=== PATIENT | female | born 1990 ===

== ENCOUNTER → 2023-04-08 09:40 | Outpatient (BNVA) | payer OTHER, SELFPAY | PROVIDERS: PCP Student in an Organized Health Care Education/Training Program; Visit Provider Nurse Practitioner Family | DX: G43.909 Migraine, unspecified, not intractable, without status migrainosus (principal); G80.8 Other cerebral palsy; Z33.1 Pregnant state, incidental | CPT/HCPCS: 99202 ==

== ENCOUNTER 2023-07-26 11:26 | Outpatient (AMB) | payer OTHER, SELFPAY ==
--- NOTE | 2023-07-26 11:42 | A.OFFVIS_ITS ---
Intake Vital Signs 07/26/23 11:43 Height 5 ft 1 in Weight 221 lb 4 oz BMI 41.8 BP 128/76 Blood Pressure Location Lt brachial Position Sitting Pulse 88 Pulse Source Pulse Oximeter Pulse Oximetry (%) 100 Oxygen Delivery Method Room Air Intake Visit Reasons: 3m follow up Seizure disorder/headache - LVM Intake Note: Pt presents today for fup seizure , last seizure 7 months ago Allergies ciprofloxacin Allergy (Unknown, Verified 07/26/23 11:46) Rash HPI HPI Comments History of Present Illness Details 33-yr-old female presents for f/u visit. Pt denies any significant interval medical changes. Pt is now 5 months . Pt denies any complications. She states she will be assessed at 8 months to determine if she needs to ahve a again. She states she was advised that she did not need to see a high-risk OB, but if any complications arise, she will be referred to [facility]. Denies any interval seizures. May have an occasional mild headache- responds to prn Tylenol. [facility] Medical History Depression GERD (gastroesophageal reflux disease) HTN (hypertension) Seizures Surgical History History of section History of surgery on lower extremity Hx of hand surgery Family History Mother Diabetes Hypertension Hypercholesteremia Glaucoma Depression Anxiety Migraines Father Diabetes Hypertension Hypercholesteremia Anxiety Depression Maternal Grandmother Myocardial infarction Brother Anxiety Depression Daughter Anxiety Depression Social History Alcohol intake: never Patient Tobacco Use Status: Current everyday Tobacco user Review of Systems Const All systems reviewed & are unremarkable except as noted in HPI and below Physical Exam Vital Signs: Last Vital Signs Pulse 88 07/26/23 11:43 BP 128/76 07/26/23 11:43 Pulse Ox 100 07/26/23 11:43 Oxygen Delivery Method Room Air 07/26/23 11:43 BMI result Body Mass Index 41.8 Const General: cooperative and no acute distress Orientation/consciousness: patient oriented x3 HEENT Head: Yes normocephalic Resp Effort & Inspection: normal respiratory effort and able to speak in complete sentences Neuro Other: Left hemiparesis General: patient oriented x3, gait normal and CN's II-XI intact bilaterally Cognition (Neuro): normal cognition Psych Appearance: grossly normal Mental Status: mental status grossly normal Speech and movement: Clear speech present Affect: normal affect Attitude: cooperative Thought process: Normal thought process present Assessment & Plan Assessment & Plan (1) : Code(s): Z34.90 - Encounter for supervision of normal , unspecified, unspecified trimester (2) Migraine: Code(s): G43.909 - Migraine, unspecified, not intractable, without status migrainosus (3) Seizures: Code(s): R56.9 - Unspecified convulsions (4) Left-sided hemiplegic cerebral palsy: Code(s): G80.8 - Other cerebral palsy Plan For seizure: Pt has h/o generalized seizure stemming from infancy. More recent seizure activity appears to have a non-epileptioc etiology- likely significant life stressor and depression. She continues to hold lamotrigine. She may continue to use Clonazepam 0.5mg prn seizure activity. ? For overall headache management: Track headaches. ? For acute headache treatment: May use Tylenol prn. Previous acute migraine medication trials: Ibuprofen Acute migraine medication contraindications: NSAIDs d/t Future considerations: Sumatriptan. ? For headache prevention medication: continue Magnesium 400mg qhs Previous migraine prevention medication trials: None Migraine prevention medication contraindications: Currently . ?? Pt to follow-up in 3 months or sooner prn. Coding Level of Care Code Est Pt Level 3 (37489) Diagnoses Z34.90 Migraine G43.909 Seizures R56.9 Left-sided hemiplegic cerebral palsy G80.8
[2023-07-26 11:43] VITALS: BP 128/76; PULSE 88; O2SAT 100; BMI 41.8
== END 2023-07-26 12:20 | disposition home or self-care (01) ==
PROVIDERS: Visit Provider Nurse Practitioner Family
DX: G43.909 Migraine, unspecified, not intractable, without status migrainosus (principal); R56.9 Unspecified convulsions; G80.8 Other cerebral palsy; Z33.1 Pregnant state, incidental
CPT/HCPCS: 99213

== ENCOUNTER → 2023-07-26 11:26 | Outpatient (BNVA) | payer OTHER, SELFPAY | PROVIDERS: Visit Provider Nurse Practitioner Family | DX: O99.352 Diseases of the nervous system complicating pregnancy, second trimester (principal); G43.909 Migraine, unspecified, not intractable, without status migrainosus; G80.8 Other cerebral palsy; Z79.899 Other long term (current) drug therapy; Z3A.00 Weeks of gestation of pregnancy not specified | CPT/HCPCS: 99212 ==

== ENCOUNTER 2023-11-09 11:00 | Outpatient (AMB) | payer OTHER, SELFPAY ==
[2023-11-09 11:07] VITALS: BP 90/70; PULSE 74; O2SAT 98; BMI 41.8
--- NOTE | 2023-11-09 11:07 | A.OFFVIS_ITS ---
Intake Vital Signs 11/09/23 11:07 Height 5 ft 1 in Weight 221 lb BMI 41.8 BP 90/70 Blood Pressure Location Rt brachial Position Sitting Pulse 74 Pulse Source Pulse Oximeter Pulse Oximetry (%) 98 Oxygen Delivery Method Room Air Intake Visit Reasons: 3m follow up Seizure disorder/headache-Confirmed Intake Note: Patient presents for 3 month follow up seizure disorder. I was admitted in the hospital with blood clot in leg,I had a c section followed by stent in leg. Allergies ciprofloxacin Allergy (Unknown, Verified 11/09/23 11:12) Rash Medication List - Last Reconciled 11/09/23 by ROE Johnson aspirin 81 mg PO DAILY cariprazine (Vraylar) 3 mg PO DAILY clonazepam mg PO docusate sodium 100 mg PO BID enoxaparin 90 mg subcut DAILY escitalopram oxalate 10 mg PO DAILY famotidine 20 mg PO BID ferrous sulfate 325 mg PO DAILY lamotrigine 100 mg PO BID zolpidem 5 mg PO BEDTIME PRN HPI HPI Comments History of Present Illness Details 33-yr-old female presents for f/u visit, accompanied by her father. Om 10/12/23, pt had [facility] eval and transfer to [facility] for leg swelling, chest pain, and SOB. Work-up revealed: persistent left lower extremity DVT, pulmonary embolus, A-fib with RVR, mild right hydroureteronephrosis likely secondary to enlarged uterus. Seizures were managed w/ Keppra and then pt was switched back to low dose Lamotrigine w/ instructions to slowly return to 100mg bid. 10/22/2023, Pt underwent section and tubal ligation 10/31/2023 patient underwent embolectomy /thrombectomy of left lower extremity with left iliac venous stenting Upon d/c, pt d/c'd home w/ home care services, f/u vascular appt and LLE US on 11/15/23, continue lovenox and transition to Warfarin if (which she is doing). Since returning home, she has not had any interval seizures. She is slowly regaining her strength, although still needs walker or assist of 1 to walk. Headaches are stable [facility] Medical History (Updated 11/21/23 @ 21:29 by ROE Johnson) HTN (hypertension) Depression GERD (gastroesophageal reflux disease) Seizures Surgical History (Updated 11/21/23 @ 21:29 by ROE Johnson) History of embolectomy Hx of hand surgery History of surgery on lower extremity History of section Family History Mother Diabetes Hypertension Hypercholesteremia Glaucoma Depression Anxiety Migraines Father Diabetes Hypertension Hypercholesteremia Anxiety Depression Maternal Grandmother Myocardial infarction Brother Anxiety Depression Daughter Anxiety Depression Social History Alcohol intake: never Patient Tobacco Use Status: Current everyday Tobacco user Review of Systems Const All systems reviewed & are unremarkable except as noted in HPI and below Physical Exam Vital Signs: Last Vital Signs Pulse 74 11/09/23 11:07 BP 90/70 11/09/23 11:07 Pulse Ox 98 11/09/23 11:07 Oxygen Delivery Method Room Air 11/09/23 11:07 BMI result Body Mass Index 41.8 Const General: cooperative and no acute distress Orientation/consciousness: patient oriented x3 Resp Effort & Inspection: normal respiratory effort and able to speak in complete sentences Neuro Other: Left hemiparesis LLE w/ jenniffer wrap General: patient oriented x3 and CN's II-XI intact bilaterally Cognition (Neuro): normal cognition Psych Appearance: grossly normal Mental Status: mental status grossly normal Speech and movement: Normal speech and movement present Affect: normal affect Attitude: cooperative Assessment & Plan Assessment & Plan (1) Seizures: Code(s): R56.9 - Unspecified convulsions (2) Left-sided hemiplegic cerebral palsy: Code(s): G80.8 - Other cerebral palsy (3) Migraine: Code(s): G43.909 - Migraine, unspecified, not intractable, without status migrainosus (4) Pulmonary embolism: Comment: Oct 2023- in 3rd trimester of Code(s): I26.99 - Other pulmonary embolism without acute cor pulmonale (5) Deep vein thrombosis (DVT) of left lower extremity: Code(s): I82.402 - Acute embolism and thrombosis of unspecified deep veins of left lower extremity Plan Reviewed [facility] notes and imaging reports. For seizure: Continue to increase Lamotrigine up to 100mg bid She may continue to use Clonazepam 0.5mg prn seizure activity. Check CBC, CMP, lamictal level ? For overall headache management: Track headaches. ? For acute headache treatment: May use Tylenol prn. Previous acute migraine medication trials: Ibuprofen Acute migraine medication contraindications: NSAIDs d/t currently on anti- coagulants. Future considerations: Sumatriptan. ? For headache prevention medication: Continue Magnesium 400mg qhs Previous migraine prevention medication trials: None Migraine prevention medication contraindications: Currently nursing. ?? Pt to follow-up in 3 months or sooner prn. Orders: Orders Complete Blood Count Auto Diff 11/09/23 R56.9 - Unspecified convulsions Comprehensive Met. Panel 11/09/23 R56.9 - Unspecified convulsions Lamotrigine Lamictal 11/09/23 R56.9 - Unspecified convulsions Medications: New lamotrigine 100 mg (1/2 x 200 mg) PO BID 30 tabs 1RF 30 days Coding Level of Care Code Est Pt Level 4 (88951) Diagnoses Seizures R56.9 Left-sided hemiplegic cerebral palsy G80.8 Migraine G43.909 Pulmonary embolism I26.99 Deep vein thrombosis (DVT) of left lower extremity I82.402
== END 2023-11-09 11:58 | disposition home or self-care (01) ==
PROVIDERS: PCP Student in an Organized Health Care Education/Training Program; Visit Provider Nurse Practitioner Family
DX: R56.9 Unspecified convulsions (principal); G80.8 Other cerebral palsy; G43.909 Migraine, unspecified, not intractable, without status migrainosus; I26.99 Other pulmonary embolism without acute cor pulmonale; I82.402 Acute embolism and thrombosis of unspecified deep veins of left lower extremity
CPT/HCPCS: 99214

== ENCOUNTER → 2023-11-09 11:00 | Outpatient (BNVA) | payer OTHER, SELFPAY | PROVIDERS: PCP Student in an Organized Health Care Education/Training Program; Visit Provider Nurse Practitioner Family | DX: G43.909 Migraine, unspecified, not intractable, without status migrainosus (principal); R56.9 Unspecified convulsions; G80.8 Other cerebral palsy; I26.99 Other pulmonary embolism without acute cor pulmonale; I82.402 Acute embolism and thrombosis of unspecified deep veins of left lower extremity | CPT/HCPCS: 99212 ==

== ENCOUNTER → 2023-12-16 07:49 | Outpatient (BNVA) | payer OTHER, SELFPAY | PROVIDERS: PCP Student in an Organized Health Care Education/Training Program; Visit Provider Nurse Practitioner Family ==

== ENCOUNTER 2024-05-01 08:22 | Outpatient (AMB) | payer OTHER, SELFPAY ==
--- NOTE | 2024-05-01 08:51 | A.OFFVIS_ITS ---
Vital Signs 05/01/24 08:57 Height 5 ft 1 in Weight 235 lb 4 oz BMI 44.4 BP 112/70 Blood Pressure Location Lt brachial Position Sitting Pulse 85 Pulse Source Pulse Oximeter Pulse Oximetry (%) 98 Oxygen Delivery Method Room Air Intake Visit Reasons: Follow up-Conf Intake Note: Patient presents for f/u. Still getting headaches. 3x a week. Allergies ciprofloxacin Allergy (Unknown, Verified 05/01/24 08:56) Rash Medication List - Last Reconciled 05/01/24 by ROE Johnson apixaban (Eliquis) 5 mg PO BID ascorbic acid (vitamin C) 500 mg PO DAILY 30 days aspirin 81 mg PO DAILY clonazepam 0.5 mg PO BEDTIME PRN 30 days docusate sodium 100 mg PO BID 30 days escitalopram oxalate 10 mg PO DAILY 30 days ferrous sulfate 325 mg PO DAILY 30 days flecainide 100 mg PO Q12H lamotrigine 200 mg PO BID 30 days levetiracetam 1,000 mg (2 x 500 mg) PO BID 30 days magnesium oxide 400 mg PO BEDTIME 30 days sumatriptan succinate 50 - 100 mg orally at onset of headache, may repeat in 2 hrs PRN; max 2 tabs per day or 4 tabs/week (may take with Tylenol) 30 days HPI Comments Details: 34-yr-old female presents for f/u visit. She has stopped nursing completely. Pt reports she has had f/u w/ cardiology and vascular- she had a recent 30 day holter monitor, and is scheduled for loop monitor implant on 05/04/24 at [facility]. She continues on Eliquis. No interval new thrombosis. She does note that her legs are still more swollen- states cannot wear her usual shoes or her LLE brace. Sometimes uses her cane or walker. Denies interval seizure attacks. She has been noticing more headaches. Now having 2-3 migraine days per week. Sumatriptan helps some. Baseline headache characteristics: Prodrome symptoms: None Aura: Blurry vision- starts hours before the headache. She has blurry vision all times. Had eye exam- worrisome for diabetic changes, but f/u eye exam w/ retinal specialist was normal- note pt does not have diabetes. Headache: 6-7/10, throbbing left-sided frontal headache a/w photophobia, phonophobia, nausea, mild dizziness, brain fog, tiredness. Also anxiety and seizure- LOC, whole body shaking, tongue biting, jaw clenching- lasts 2-3 minutes, postictal fatigue, confusion, difficulty talking, watery eyes Postdrome: Sometimes a residual headache. [facility] Medical History (Updated 05/01/24 @ 09:37 by ROE Johnson) HTN (hypertension) Depression GERD (gastroesophageal reflux disease) Seizures Surgical History (Updated 05/01/24 @ 09:33 by ROE Johnson) History of embolectomy Hx of hand surgery History of surgery on lower extremity History of section Family History Mother Diabetes Hypertension Hypercholesteremia Glaucoma Depression Anxiety Migraines Father Diabetes Hypertension Hypercholesteremia Anxiety Depression Maternal Grandmother Myocardial infarction Brother Anxiety Depression Daughter Anxiety Depression Social History Alcohol intake: never Patient Tobacco Use Status: Current everyday Tobacco user Physical Exam Vital Signs: Last Vital Signs Pulse 85 05/01/24 08:57 BP 112/70 05/01/24 08:57 Pulse Ox 98 05/01/24 08:57 Oxygen Delivery Method Room Air 05/01/24 08:57 BMI result Body Mass Index 44.4 Const General: cooperative and no acute distress Orientation/consciousness: patient oriented x3 Resp Effort & Inspection: normal respiratory effort and able to speak in complete sentences Neuro Other: Left ankle foot weakness. Slight left high step- overall steady gait- w/o brace or walker/cane. LLE diffuse swelling. General: patient oriented x3 Cranial nerves: Yes CN's II-XII intact bilaterally Cognition (Neuro): normal cognition Psych Appearance: grossly normal Mental Status: mental status grossly normal Speech and movement: Clear speech present Affect: normal affect Attitude: cooperative Assessment & Plan Assessment & Plan (1) Migraine: Code(s): G43.909 - Migraine, unspecified, not intractable, without status migrainosus Category: Medical (2) Left-sided hemiplegic cerebral palsy: Code(s): G80.8 - Other cerebral palsy Category: Medical (3) Seizures: Code(s): R56.9 - Unspecified convulsions Category: Medical (4) Pain and swelling of left lower extremity: Code(s): M79.605 - Pain in left leg; M79.89 - Other specified soft tissue disorders Category: Medical Plan F/u w/ vascular and cardiology as scheduled. Pt is scheduled for loop monitor implant next week. F/u w/ Preston Franco C[employer] CATHETER[employer] TECHNICIAN- psychiatry, and therapist. For LLE pain and swelling: Will refer pt to PT- previously seen at [facility] Lynsey Matthews- pt to clear this by vascular before starting. For seizure: Continue Lamotrigine 200mg bid Continue Keppra 1000 mg b.i.d. ? For acute headache treatment: May use Tylenol prn. Continue Sumatriptan 50-100mg prn, may take w/ Tylenol- take it at the 1st sign. Previous acute migraine medication trials: Ibuprofen Acute migraine medication contraindications: NSAIDs d/t currently anticoagulated. ? For headache prevention medication: Magnesium 400mg qhs Trial Topiramate 25-50mg qhs. Previous migraine prevention medication trials: None Migraine prevention medication contraindications: Beta-blockers- d/t low BP. ?? Pt to follow-up in 3 months or sooner prn. Orders: Orders PT Evaluation and Treatment Today G80.8 - Other cerebral palsy, I82.402 - Acute embolism and thrombosis of unspecified deep veins of left lower extremity, M79.605 - Pain in left leg, M79.89 - Other specified soft tissue disorders Medications: New topiramate 25 - 50 mg (1 - 2 x 25 mg) PO BEDTIME 30 days 60 tabs 3RF levonorgestrel (Mirena) intrauterine Coding Level of Care Code Est Pt Level 4 (53824) Diagnoses Migraine G43.909 Left-sided hemiplegic cerebral palsy G80.8 Seizures R56.9 Pain and swelling of left lower extremity M79.605; M79.89
[2024-05-01 08:57] VITALS: BP 112/70; PULSE 85; O2SAT 98; BMI 44.4
== END 2024-05-01 09:46 | disposition home or self-care (01) ==
PROVIDERS: PCP Student in an Organized Health Care Education/Training Program; Visit Provider Nurse Practitioner Family
DX: G43.909 Migraine, unspecified, not intractable, without status migrainosus (principal); G80.8 Other cerebral palsy; R56.9 Unspecified convulsions; M79.605 Pain in left leg; M79.89 Other specified soft tissue disorders
CPT/HCPCS: 99214

== ENCOUNTER → 2024-05-01 08:22 | Outpatient (BNVA) | payer OTHER, SELFPAY | PROVIDERS: PCP Student in an Organized Health Care Education/Training Program; Visit Provider Nurse Practitioner Family | DX: G43.909 Migraine, unspecified, not intractable, without status migrainosus (principal); G80.8 Other cerebral palsy; R56.9 Unspecified convulsions; M79.605 Pain in left leg; M79.89 Other specified soft tissue disorders | CPT/HCPCS: 99212 ==

== ENCOUNTER 2025-04-24 09:50 | Outpatient (AMB) | payer OTHER, SELFPAY ==
[2025-04-24 10:07] VITALS: BP 100/82; PULSE 99; O2SAT 79; BMI 38.2
--- NOTE | 2025-04-24 10:07 | MHC.OFFVIS ---
Vital Signs 04/24/25 10:07 Height 5 ft 1 in Weight 202 lb BMI 38.2 BP 100/82 Blood Pressure Location Rt brachial Position Sitting Pulse 99 Pulse Source Pulse Oximeter Pulse Oximetry (%) 79 L Oxygen Delivery Method Room Air Intake Visit Reasons: Follow up Rn Intensive Care Unit Required: No Accompanied by: Self / Same As Patient Allergies ciprofloxacin Allergy (Unknown, Verified 04/24/25 10:10) Rash Medication List - Last Reconciled 04/24/25 by ROE Johnson apixaban (Eliquis) 5 mg PO BID ascorbic acid (vitamin C) 500 mg PO DAILY 30 days aspirin 81 mg PO DAILY clonazepam 0.5 mg PO BEDTIME PRN 30 days docusate sodium 100 mg PO BID 30 days escitalopram oxalate 10 mg PO DAILY 30 days ferrous sulfate 325 mg PO DAILY 30 days flecainide 100 mg PO Q12H lamotrigine 200 mg PO BID 30 days levetiracetam 1,000 mg (2 x 500 mg) PO BID 30 days levonorgestrel (Mirena) intrauterine magnesium oxide 400 mg PO BEDTIME 30 days sumatriptan succinate 50 - 100 mg orally at onset of headache, may repeat in 2 hrs PRN; max 2 tabs per day or 4 tabs/week (may take with Tylenol) 30 days tirzepatide 12.5 mg subcut QWEEK topiramate 25 - 50 mg (1 - 2 x 25 mg) PO BEDTIME 30 days HPI Comments Details: 35-yr-old female presents for f/u visit of migraine. Pt reports she continues to see cardiology and vascular- She reports she had a recent [facility] admission s/p a fall, and there was concern for LLE DVT, however f/u LLE venous US showed stable non-occlussive thrombosis. During the hospitalization, she was started on an Eliquis pack- which she has completed, and vascular advised her to maintain her daily ASA 81mg. She is prone to leg cramps while walking. She is prone to restlessness when sitting or in bed. Sometimes when she sleeps, her legs jump. She notes she has been tripping more- not sure why. She is compliant w/ her LLE AFO. Denies interval seizure attacks. She reports her migraine attacks come and go- has them more when she is stressed or feeling down. Has milder headaches here and there. Has stronger headaches less often. Taking Motrin or Tylenol, rests in a dark/quiet space, and takes a nap helps. Using Sumatriptan helps with the stronger headaches. Baseline headache characteristics: Prodrome symptoms: None Aura: Blurry vision- starts hours before the headache. She has blurry vision all times. Had eye exam- worrisome for diabetic changes, but f/u eye exam w/ retinal specialist was normal- note pt does not have diabetes. Headache: 6-7/10, throbbing left-sided frontal headache a/w photophobia, phonophobia, nausea, mild dizziness, brain fog, tiredness. Also anxiety and seizure- LOC, whole body shaking, tongue biting, jaw clenching- lasts 2-3 minutes, postictal fatigue, confusion, difficulty talking, watery eyes Postdrome: Sometimes a residual headache. [facility] Medical History (Updated 04/24/25 @ 19:14 by ROE Johnson) HTN (hypertension) Depression GERD (gastroesophageal reflux disease) Seizures Surgical History History of embolectomy Hx of hand surgery History of surgery on lower extremity History of section Family History Mother Diabetes Hypertension Hypercholesteremia Glaucoma Depression Anxiety Migraines Father Diabetes Hypertension Hypercholesteremia Anxiety Depression Maternal Grandmother Myocardial infarction Brother Anxiety Depression Daughter Anxiety Depression Social History Alcohol intake: never Patient Tobacco Use Status: Current everyday Tobacco user Physical Exam Vital Signs: Last Vital Signs Pulse 99 04/24/25 10:07 BP 100/82 04/24/25 10:07 Pulse Ox 79 L 04/24/25 10:07 Oxygen Delivery Method Room Air 04/24/25 10:07 BMI result Body Mass Index 38.2 Const General: cooperative and no acute distress Orientation/consciousness: patient oriented x3 Resp Effort & Inspection: normal respiratory effort and able to speak in complete sentences Neuro Other: Left ankle foot weakness. Slight left high step w/ left AFO- overall steady gait- w/o walker/cane. General: patient oriented x3 Cranial nerves: Yes CN's II-XII intact bilaterally Cognition (Neuro): normal cognition Psych Appearance: grossly normal Mental Status: mental status grossly normal Speech and movement: Clear speech present Affect: normal affect Attitude: cooperative Assessment & Plan Assessment & Plan (1) Left-sided hemiplegic cerebral palsy: Code(s): G80.8 - Other cerebral palsy Category: Medical (2) Frequent falls: Code(s): R29.6 - Repeated falls Category: Medical (3) Snoring: Code(s): R06.83 - Snoring Category: Medical (4) Excessive daytime sleepiness: Code(s): G47.19 - Other hypersomnia Category: Medical (5) Leg cramps: Code(s): R25.2 - Cramp and spasm Category: Medical (6) Migraine: Code(s): G43.909 - Migraine, unspecified, not intractable, without status migrainosus Category: Medical Qualifiers: Migraine type: migraine (< 15 days per month) without aura Status migrainosus presence: without status migrainosus Intractability: not intractable Qualified Code(s): G43.009 - Migraine without aura, not intractable, without status migrainosus (7) Seizures: Code(s): R56.9 - Unspecified convulsions Category: Medical Plan F/u w/ vascular and cardiology as scheduled. F/u w/ [facility] [employer]- psychiatry, and therapist. F/u w/ therapist at [facility]. For recent falls in setting of left CP: Will refer pt to PT- previously seen at [facility] Lynsey Matthews. For sleep difficulties and RLS s/s: Check labs for common etiologies Patient advised to undergo in-lab sleep study to assess for sleep apnea and periodic limb movement of sleep- in-lab sleep study requested due to history of cerebral palsy For seizure: Continue Lamotrigine 200mg bid Continue Keppra 1000 mg b.i.d. ? For acute headache treatment: May use Tylenol prn. Continue Sumatriptan 50-100mg prn, may take w/ Tylenol- take it at the 1st sign. Previous acute migraine medication trials: Ibuprofen Acute migraine medication contraindications: NSAIDs d/t currently anticoagulated. ? For headache prevention medication: Continue Magnesium 400mg qhs Hold Topiramate 25-50mg qhs- pt did not start- would like to see results of above before considering updating migraine prevention tx. Previous migraine prevention medication trials: None Migraine prevention medication contraindications: Beta-blockers- d/t low BP. ?? Pt to follow-up in 6 months or sooner prn. Orders: Orders Complete Blood Count Auto Diff Today D64.9 - Anemia, unspecified, F32.A - Depression, unspecified, G47.19 - Other hypersomnia, R25.2 - Cramp and spasm, R56.9 - Unspecified convulsions Comprehensive Met. Panel Today D64.9 - Anemia, unspecified, F32.A - Depression, unspecified, G47.19 - Other hypersomnia, R25.2 - Cramp and spasm, R56.9 - Unspecified convulsions Ferritin Today D64.9 - Anemia, unspecified, F32.A - Depression, unspecified, G47.19 - Other hypersomnia, R25.2 - Cramp and spasm, R56.9 - Unspecified convulsions IRON PROFILE Today D64.9 - Anemia, unspecified, F32.A - Depression, unspecified, G47.19 - Other hypersomnia, R25.2 - Cramp and spasm, R56.9 - Unspecified convulsions Methylmalonic Acid Today D64.9 - Anemia, unspecified, F32.A - Depression, unspecified, G47.19 - Other hypersomnia, R25.2 - Cramp and spasm, R56.9 - Unspecified convulsions Erythrocyte Sedimentation Rate Today D64.9 - Anemia, unspecified, F32.A - Depression, unspecified, G47.19 - Other hypersomnia, R25.2 - Cramp and spasm, R56.9 - Unspecified convulsions PT Evaluation and Treatment Today G80.8 - Other cerebral palsy, R29.6 - Repeated falls RT PSG in-lab sleep study Today G47.19 - Other hypersomnia, G80.8 - Other cerebral palsy, R06.83 - Snoring, R25.2 - Cramp and spasm Lipid Panel with Reflex Today D64.9 - Anemia, unspecified, F32.A - Depression, unspecified, G47.19 - Other hypersomnia, R25.2 - Cramp and spasm, R56.9 - Unspecified convulsions TSH reflex Free T4 Today D64.9 - Anemia, unspecified, F32.A - Depression, unspecified, G47.19 - Other hypersomnia, R25.2 - Cramp and spasm, R56.9 - Unspecified convulsions Vitamin D 25-OH (D2 and D3) Today D64.9 - Anemia, unspecified, F32.A - Depression, unspecified, G47.19 - Other hypersomnia, R25.2 - Cramp and spasm, R56.9 - Unspecified convulsions Vitamin B12 and Folate Today D64.9 - Anemia, unspecified, F32.A - Depression, unspecified, G47.19 - Other hypersomnia, R25.2 - Cramp and spasm, R56.9 - Unspecified convulsions Vitamin B6 Today D64.9 - Anemia, unspecified, F32.A - Depression, unspecified, G47.19 - Other hypersomnia, R25.2 - Cramp and spasm, R56.9 - Unspecified convulsions C Reactive Protein Today D64.9 - Anemia, unspecified, F32.A - Depression, unspecified, G47.19 - Other hypersomnia, R25.2 - Cramp and spasm, R56.9 - Unspecified convulsions Hemoglobin A1c Today D64.9 - Anemia, unspecified, F32.A - Depression, unspecified, G47.19 - Other hypersomnia, R25.2 - Cramp and spasm, R56.9 - Unspecified convulsions Medications: Changed From magnesium oxide may hold for loose stools 400 mg PO BEDTIME 30 days 30 tabs 6RF To magnesium oxide may hold for loose stools 400 mg PO BEDTIME 90 days 90 tabs 3RF From lamotrigine 200 mg PO BID 30 days 60 tabs 6RF To lamotrigine 200 mg PO BID 90 days 180 tabs 3RF From levetiracetam 1,000 mg (2 x 500 mg) PO BID 30 days 120 tabs 3RF To levetiracetam 1,000 mg (2 x 500 mg) PO BID 90 days 360 tabs 3RF Refilled sumatriptan succinate (0.5 - 1 x 100 mg) 50 - 100 mg orally at onset of headache, may repeat in 2 hrs PRN; max 2 tabs per day or 4 tabs/week (may take with Tylenol) 30 days 12 tabs 6RF migraine headache Discontinued topiramate Discontinued Reason: Doctor's Order 25 - 50 mg (1 - 2 x 25 mg) PO BEDTIME 30 days 60 tabs 3RF Coding Level of Care Code Est Pt Level 4 (96342) Diagnoses Left-sided hemiplegic cerebral palsy G80.8 Frequent falls R29.6 Snoring R06.83 Excessive daytime sleepiness G47.19 Leg cramps R25.2 Migraine without aura and without status migrainosus, not intractable G43.009 Migraine type: migraine (< 15 days per month) without aura Status migrainosus presence: without status migrainosus Intractability: not intractable Seizures R56.9 [place] Sleepiness Scale Questions Sitting and reading: moderate chance of dozing Watching TV: moderate chance of dozing Sitting inactive in a theater, movie etc.: moderate chance of dozing As a passenger in a car for an hour without break: would never doze Lying down in the afternoon when circumstances permit: moderate chance of dozing Sitting and talking to someone: slight chance of dozing Sitting quietly after lunch without alcohol: moderate chance of dozing In a car, while stopped for a few minutes in the traffic: would never doze ESS < 10: normal, ESS > 12: pathologic: 11
--- OUTSIDE RECORDS SUMMARY | 2025-04-24 10:23 | XMS_ITS | Clinical Summary ---
Author Organization 175 [facility] Address [address] [place] [address] Phone Care Team Providers Care Leadership Development Manager Name Role Phone Hema Mirza MD Primary Care Provider [phone] Allergies Active Allergy Reactions Criticality Noted Date Comments Ciprofloxacin 03/19/2013 rash Medications flecainide (TAMBOCOR) 100 mg tablet TAKE ONE TABLET BY MOUTH TWICE A DAY^1R1,1R4 03/14/20 24 Active cyanocobalamin (VITAMIN B-12) 1,000 mcg tablet Take 1 tablet (1,000 mcg total) by mouth 1 (one) time each day. 04/18/20 24 Active phenyleph-pram wvio-ddumb-o.p et 0.25-1 % cream Apply 1 g topically 3 times daily. 03/13/20 24 Active polyethylene glycol (MIRALAX) 17 gram packet Take 1 Packet by mouth daily. 03/13/20 24 Active cholecalcifero l (VITAMIN D-3) 50 mcg (2,000 unit) tablet Take 1 tablet (2,000 Units total) by mouth 1 (one) time each day. 01/07/20 24 Active escitalopram (LEXAPRO) 10 mg tablet Take 1 tablet (10 mg total) by mouth 1 (one) time each day. 11/03/20 23 Active clonazePAM (KlonoPIN) 0.5 mg tablet Take 1 tablet (0.5 mg total) by mouth 1 (one) time each day if needed. Max Daily Amount: 0.5 mg 11/10/20 23 Active lamoTRIgine (LaMICtal) 25 mg tablet Take 1 tablet (25 mg total) by mouth 1 (one) time each day. Active metoprolol succinate (TOPROL-XL) 25 mg 24 hr tablet Take 1 tablet (25 mg total) by mouth 1 (one) time each day. 90 each 3 10/02/20 24 Active acetaminophen (TYLENOL) 500 mg tablet TAKE ONE TABLET BY MOUTH EVERY 6 HOURS NEEDED FOR MILD PAIN (VIAL) 30 tablet 1 03/12/20 25 Active tirzepatide, weight loss, (Zepbound) 12.5 mg/0.5 mL injection Inject 0.5 mL (12.5 mg total) under the skin every 7 (seven) days. 2 mL 04/23/20 25 025 Active tirzepatide, weight loss, (Zepbound) 7.5 mg/0.5 mL injection Inject 0.5 mL (7.5 mg total) under the skin every 7 (seven) days for 28 days. 2 mL 03/11/20 25 025 Discontinued tirzepatide, weight loss, (Zepbound) 10 mg/0.5 mL injection Inject 0.5 mL (10 mg total) under the skin every 7 (seven) days for 28 days. 2 mL 04/04/20 25 025 Discontinued Hospital, Clinic, or Other Facility Administered Medication Ordered Dose Route Frequency Start Date End Date Status triamcinolone acetonide (KENALOG-40) 40 mg/mL injection 10 mgIndications:Keloid scar 10 mg IAtc Once PRN Procedure 04/19/2025 04/19/2025 Ended Active Problems Problem Noted Date Diagnosed Date Keloid scar 03/06/2025 Cerebral palsy, hemiplegic ([facility] V24, [facility] V28) 08/29/2024 Anxiety and depression 08/29/2024 Overview (08/29/2024): Follows at 3300, [facility] EPDS at IP visit 05/18/2023: Results of [place] Depression Scale (EPDS) Question #10. In the past 7 days, the thought of harming myself has occurred to me: Never EDPS Score: 4 EDPS Interpretation (Maximum Score:30): 0-9: Normal Screen. 09/07/2023: Results of [place] Depression Scale (EPDS) Question #10. In the past 7 days, the thought of harming myself has occurred to me: Never EDPS Score: 12 . Seizure disorder ([facility] V24, [facility] V28) 07/2024 Overview (08/29/2024): Dr. Weber is her neurologist at [facility] she had consult with M on 05/18/2023 and Lamictal was advised to be restarted she needs to contact Dr. 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 She has a OOE2AH3-OFCr score of 3 and continues on anticoagulation with apixaban 5 mg orally twice daily. She denies any excessive bruising or bleeding. EKG today shows normal sinus rhythm at a rate of 79 bpm. Recent echocardiogram showed normal LV function. Given her symptoms of feeling like her heart is racing and palpitations, I recommended she undergo a 30-day ambulatory cardiac monitor technician to assess her atrial fibrillation burden and assess her heart rates which may be contributing to her symptoms. She will continue her current dose of flecainide as prescribed for now. I will notify her of the results as soon as the become available. She is willing to follow-up with electrophysiology Dr. Dixon whom she saw during her hospitalization for further recommendations and we will arrange for this. Will also update blood work including CMP and TSH. Cerebral palsy (CMS/HCC V24, CMS/HCC V28) 2022 Encephalomalacia 11/26/2022 Hydrops 11/26/2022 Hypocalcemia 11/26/2022 Scoliosis of lumbosacral spine 01/18/2022 DARRYN (obstructive sleep apnea) 03/19/2013 Overview (08/29/2024): Last Assessment & Plan: The patient has a history of sleep apnea. This was confirmed with previous sleep studies done in 2012 and 2013. The patient states that her treatment for his sleep apnea was stopped after she lost weight and her sleep apnea apparently improved. However, more recently, the patient has gained the weight back. She is now exhibiting symptoms of nighttime snoring as well as witnessed episodes of apneas during her sleep. The symptoms are suggestive of underlying sleep apnea. We will order a sleep study in order to reevaluate the patient's sleep apnea and determine if she will benefit from reinitiation of her CPAP therapy. Encounters Date Type Department Care Team Description 04/22/2025 Telephone Bariatric Surgery - [place] [address] [facility] [address] [place] [phone] Miller Zazueta MD Med Refill (Zepbound w/titration ) 04/19/2025 11:00 AM EDT Office Visit Plastic & Reconstructive Surgery - [place] [address] [facility] [address] [place] [phone] Roger Monteiro PA Keloid scar (Primary Dx) 04/02/2025 2:00 PM EDT Office Visit Obstetrics and Gynecology - [place] [address] [place] [phone] Christina Phan CNM Women's annual routine gynecological examination (Primary Dx); IUD check up; Venereal disease screening 03/15/2025 4:15 PM EDT Ancillary Procedure [facility] - [facility] [address] [facility] [address] [place] [phone] 03/11/2025 9:30 AM EDT Nutrition Bariatric Surgery - [place] [address] [facility] [address] [place] [phone] Aneta Stroud, MICHELLE Class 2 obesity with body mass index (BMI) of 38.0 to 38.9 in adult, unspecified obesity type, unspecified whether serious comorbidity present (Primary Dx) 03/11/2025 Telephone Internal Medicine - [place] [address] [facility] [address] [place] [phone] Hema Mirza MD 03/11/2025 Telephone Bariatric Surgery - [place] [address] [facility] [address] [place] [address] Miller Zazueta MD Med Refill (Zepbound w/titration ) 03/06/2025 11:00 AM EDT Consult Plastic & Reconstructive Surgery [facility] [address] [place] [address] Roger Monteiro PA Keloid scar (Primary Dx) 02/22/2025 11:25 PM EDT Ancillary Procedure [facility] Card[facility] - [facility] [address] [facility] [address] [place] [address] 02/22/2025 6:55 PM EDT Ancillary Procedure [facility] - [facility] [address] [place] [address] 02/19/2025 2:20 PM EDT Ancillary Procedure [facility] - [facility] [address] [facility] [address] [place] [address] 02/06/2025 10:00 AM EDT Office Visit Internal Medicine - [place] [address] [facility] [address] [place] [address] Hema Mirza MD Encounter for annual physical exam (Primary Dx); Cerebral palsy, unspecified type (CMS/HCC V24, CMS/HCC V28); Anxiety and depression; Atrial fibrillation, unspecified type (CMS/HCC V24, CMS/HCC V28); Hypocalcemia; Seizure disorder (CMS/HCC V24, CMS/HCC V28); DARRYN (obstructive sleep apnea); Other form of scoliosis of lumbosacral spine; Class 3 severe obesity without serious comorbidity with body mass index (BMI) of 40.0 to 44.9 in adult, unspecified obesity type ([facility] V24, [facility] V28); Weakness of left lower extremity; Ear lump, right; Need for prophylactic vaccination and inoculation against influenza; Other fatigue; Other abnormal glucose; Encounter for lipid screening for cardiovascular disease; Vitamin D deficiency; Chronic midline low back pain without sciatica 02/06/2025 Telephone Internal Medicine - [address] [place] [address] Hema Mirza MD Forms/questionnaires (/) from Last 3 Months Immunizations Name Administration Dates Next Due HPV, Quadrivalent 08/14/2014,04/10/2014,02/06/20 14 Influenza Quadravalent, MDCK , 0.5ml, preservative free (Flucelvax) 6mo and older 09/07/2023,01/18/2022,02/02/2021,2019 Influenza trivalent, MDCK, 0 .5mL, preservative free (Flucelvax) 6mo and older 02/06/2025 Influenza trivalent, with preservative (Fluzone; Afluria) 6mo and older 08/27/2014,11/07/2013 Influenza, Unspecified 10/07/2022 Moderna SARS-CoV-2 COVID-19, mRNA, LNP-S, preservative free 11/01/2021,05/06/2021 Tdap Tetanus diptheria acell ular pertussis (Boostrix; Adacel) 7yo and older 09/07/2023,11/07/2013 Surgical History Surgery Date Site/Laterality Comments OTHER SURGICAL HISTORY PROCEDURE: CLASS OTHER SURGICAL HISTORY PROCEDURE: [place] UNLISTED PROCEDURE LEG/ANKLE; COMMENT: had 11 surgeries due to spasticicty HAND SURGERY PROCEDURE: [place] UNLISTED PROCEDURE HANDS/FINGERS; COMMENT: had 3 surgeries SECTION 12/20/2008 PROCEDURE: HISTORICAL DELIVERY; COMMENT: delivered at [facility] delivered at 25wks: preeclampsia, baby in NICU for 6 mo. WISDOM TOOTH EXTRACTION PROCEDURE: HISTORICAL WISDOM TEETH EXTRACTION; COMMENT: all 4 removed. TUBAL LIGATION 10/22/2023 Bilateral PROCEDURE: HISTORICAL TUBAL LIGATION; COMMENT: with [facility] Medical History Medical History Date Comments Cerebral palsy, hemiplegic ( [facility] V24, [facility] V28) DX:Cerebral palsy, hemiplegi c ([facility]); COMMENT: left sided hemiplegia Headache(784.0) DX:Headache(784. 0) Anxiety and depression DX:Anxiet y and depression; COMMENT: follows with a Pscychiatrist- Dr Oneal in [place], Counsellor -is Jayashree Valenzuela Seizure disorder ([facility] V2 4, [facility] V28) DX:Seizure disorder ([facility]); C OMMENT: last seizure at age 14, recent seizure 12/2022 brought on anxiety Sleep apnea 03/19/2013 DX:Sleep apnea Headache(784.0) 03/19/2013 DX:Headache(784. 0) Chronic daily headache 11/07/2013 DX:Chroni c daily headache Irritable bowel syndrome DX:Irri table bowel syndrome; COMMENT: constipation Dermatophytosis of nail DX:[place] tophytosis of nail Encephalomalacia 11/26/2022 DX:Encephalomal acia Obesity DX:Obesity Family History Medical History Relation Name Comments Other: heart problems Aunt No Known Problems Brother 1 No Known Problems Brother 2 No Known Problems Brother 3 Cataracts Daughter Nevin Other: born premature; has mild CP Daughter Nevin Other: seizure disorder Daughter Nevin Diabetes Father htn, cholesreol Diabetes Maternal Grandmother Diabetes Mother htn, cholestero l Glaucoma Mother Other: knee replacement Mother Other: from heart attack Paternal Grandmother Other: of heart attach Paternal Grandmother No Known Problems Sister 1 No Known Problems Sister 2 Blindness Neg Hx Breast cancer Neg Hx Macular degeneration Neg Hx Strabismus Neg Hx Relation Name Status Comments Aunt Brother 1 Alive Brother 2 Alive Brother 3 Alive Daughter Nevin Alive Father Alive Maternal Grandfather Alive Maternal Grandmother Alive Mother Alive Paternal Grandfather Paternal Grandmother Sister 1 Alive Sister 2 Alive Social History Tobacco Use Types Packs/Day Years Used Date Smoking Tobacco: Former Cigarettes Q uit: 12/07/2017 Smokeless Tobacco: Never Alcohol Use Standard Drinks/Week Comments No 0 (1 standard drink = 0.6 oz pur e alcohol) Comments No Sex and Gender Information Value Date Recorded Sex Assigned at Not on file Legal Sex Female 4:53 AM EST Gender Identity Not on file Sexual Orientation Not on file Obstetrics History Para Term AB IAB SAB Ectopic Multiple Livin g Live Births 2 2 2 2 2 Date Outcome GA Total Labor Labor/2nd/3rd Weight Sex Type Anes PTL Sofie A1 A5 Name Clin 2008 25w 5d 454 g (16 oz) F CS-Un spec Y Livin g Nevin Complications:Pre-eclampsia Delivery Location:[facility] Comments:on 12/20, nenita carlisle was admitted for severe pre-eclampsia (elevated LFTs, thrombocytopenia) and HELLP syndrome. She was started on magnesium on admission, had a likely eclamptic tonic-clonic seizure, and then had a . 2022 34w 5d 2340 g (82.5 oz) M CS-LT ranv Spinal Livin g [facility] Complications:Deep vein thro mbosis (DVT), antepartum,Obstetric pulmonary embolism Last Filed Vital Signs Vital Sign Reading Time Taken Comments Blood Pressure 104/68 04/02/2025 1:58 PM EDT Pulse 102 04/02/2025 1:58 PM EDT Temperature 36.6 ??C (97.8 ??F) 01/10/2025 10:[address] Respiratory Rate - - Oxygen Saturation 98% 02/06/2025 10:13 AM EDT Inhaled Oxygen Concentration - - Weight 93 kg (205 lb) 04/02/2025 1:58 PM EDT Height 157.5 cm (5' 2 ) 03/06/2025 10:54 AM EDT Body Mass Index 37.49 03/06/2025 10:54 AM EDT Plan of Treatment Upcoming Encounters Date Type Department Care Team (Late st Contact Info) Description 05/14/2025 11:00 AM EDT Office Visit Bariatric Surgery - [place] [address] [facility] [address] [place] [phone] Miller Zazueta MD [address] [facility] [address] [place] [address] 05/31/2025 11:00 AM EDT Office Visit Plastic & Reconstructive Surgery [facility] [address] [place] [address] Roger Monteiro PA [address] [facility] [address] [place] [address] 06/10/2025 8:30 AM EDT Nutrition Bariatric Surgery - [place] [address] [facility] [address] [place] [phone] Nallely Mckeon, MICHELLE 175 [facility] [address] [place] [phone] 02/06/2026 8:30 AM EDT Office Visit Internal Medicine - [place] [address] [facility] [address] [place] [phone] Hema Mirza MD 175 [facility] [address] [place] [address] Health Maintenance Due Date Last Done Comments Hepatitis B Vaccines (1 of 3 - 19+ 3-dose series) 02/25/2008 Medicare Annual Wellness Visit 10/30/2022 Social Influencers of Health Screening 02/06/2026 02/06/2025 Depression Screening 03/22/2026 03/22/2025, 02/06/2025, 12/08/2023 Cervical Cancer Screening: HPV 03/09/2027 03/09/2022 Cholesterol Screening (Lipid Panel) 02/06/2030 02/06/2025, 01/05/2024 DTaP,Tdap,and Td Vaccines (3 - Td or Tdap) 09/07/2033 09/07/2023, 11/07/2013 HPV Vaccines Completed 08/14/2014, 03/22, 02/05/2014, Additional history exists COVID-19 Vaccine Completed 02/06/2025, , 11/01/2021, Additional history exists HIV Screening Completed 02/06/2025, 05/09/2023 Hepatitis C Screening Completed 02/06/2025, 023 Influenza Vaccine Completed 02/06/2025, , 10/07/2022, Additional history exists HIB Vaccines Aged Out No longer eligi ble based on patient's age to complete this topic Hepatitis A Vaccines Aged Out No long er eligible based on patient's age to complete this topic IPV Vaccines Aged Out No longer eligi ble based on patient's age to complete this topic MMR Vaccines Aged Out No longer eligi ble based on patient's age to complete this topic Meningococcal ACWY Vaccine Aged Out N o longer eligible based on patient's age to complete this topic Meningococcal B Vaccine Aged Out No l onger eligible based on patient's age to complete this topic Pneumococcal Vaccine: Pediatrics (0 to 5 Years) and At-Risk Patients (6 to 64 Years) Aged Out No longer eligible based on patient's age to complete this topic RSV Immunization Patients Under 20 months Aged Out No longer eligible based on patient's age to complete this topic Varicella Vaccines Aged Out No longer eligible based on patient's age to complete this topic Medical Devices Implanted Type Area Operations Engineer Device Identifier Shelf Expiration Date Model / Serial / Lot Bsci-Crm [id number] Implanted:04/21 (Quantity not on file) Cardiac Loop Recorder [employer] SCI CARD RHYTHM MGMT [id number] / [id number] / Procedures Procedure Name Priority Date/Time Associated Diagnosis Comments INJECTION TENDON OR LIGAMENT Routine 04/19/2025 11:00 AM EDT Keloid scar CHLAMYDIA TRACHOMATIS AND NEISSERIA GONORRHOEAE PCR Routine 04/02/2025 2:12 PM EDT Venereal disease screening CARDIAC DEVICE CHECK- REMOTE- MURJ Routine 03/15/2025 4:13 PM EDT INJECTION TENDON OR LIGAMENT Routine 03/06/2025 11:00 AM EDT Keloid scar CARDIAC DEVICE CHECK- REMOTE- MURJ Routine 02/22/2025 11:20 PM EDT CARDIAC DEVICE CHECK- REMOTE- MURJ Routine 02/22/2025 6:53 PM EDT CARDIAC DEVICE CHECK- REMOTE- MURJ Routine 02/19/2025 2:19 PM EDT CHLAMYDIA TRACHOMATIS AND NEISSERIA GONORRHOEAE PCR Routine 02/06/2025 1:18 PM EDT Encounter for annual physical exam CBC WITH AUTO DIFFERENTIAL Routine 02/06/2025 1:10 PM EDT Encounter for annual physical exam Other fatigue HEPATITIS C ANTIBODY Routine 02/06/2025 1:10 PM EDT Encounter for annual physical exam TREPONEMA PALLIDUM ANTIBODY WITH REFLEX TO RPR AND PARTICLE AGGLUTINATION Routine 02/06/2025 1:10 PM EDT Encounter for annual physical exam HIV 1, 2 ANTIBODY, P24 ANTIGEN WITH REFLEX TO DIFFERENTIATION Routine 02/06/2025 1:10 PM EDT Encounter for annual physical exam THYROID STIMULATING HORMONE WITH REFLEX TO FREE T4 AND FREE T3 Routine 02/06/2025 1:10 PM EDT Encounter for annual physical exam Other fatigue VITAMIN D 25 HYDROXY Routine 02/06/2025 1:10 PM EDT Encounter for annual physical exam Vitamin D deficiency LIPID PANEL WITH REFLEX TO DIRECT LDL Routine 02/06/2025 1:10 PM EDT Encounter for annual physical exam Encounter for lipid screening for cardiovascular disease COMPREHENSIVE METABOLIC PANEL Routine 02/06/2025 1:10 PM EDT Encounter for annual physical exam VITAMIN B12 Routine 02/06/2025 1:10 PM EDT Encounter for annual physical exam Other fatigue HEMOGLOBIN A1C Routine 02/06/2025 1:10 PM EDT Encounter for annual physical exam Other abnormal glucose CBC AND DIFFERENTIAL Routine 02/06/2025 1:10 PM EDT Encounter for annual physical exam Other fatigue HM DEPRESSION SCREENING Routine 12/08/2023 HM HPV Routine 03/09/2022 from Last 3 Months or Most Recently Relevant to Health Maintenance Results * Injection tendon or ligament (04/19/2025 11:00 AM EDT) Narrative Roger Monteiro PA - 04/19/2025 11:00 AM EDT MICAELA Cheung ? 04/19/2025 10:57 AM Injection tendon or ligament Details: 21 G needle Medications: 10 mg triamcinolone acetonide 40 mg/mL PROCEDURE NOTE: After obtaining written and verbal consent after discussion of risks and benefits of steroid injections, Kenalog 10 mg/1 mL and xylocaine with epi 1:100,000 injection into both right earlobe keloids. Areas were prepped with alcohol wipe. I injected 0.25 mL of Kenalog and 0.25 mL of 1% xylocaine with epi 1:100,000, spread throughout the earlobe lesion. Patient tolerated anesthesia and injections well with no complications. I applied clean dressing to the area. Patient instructed to keep the area clean for the rest of the day. Informed Consent: ??Laterality: ??Right ??Health status cleared: ??Yes ??Procedure/treatment, purpose, treatment alternatives, risks/potential complications and benefits explained: yes ?Patient questions answered: yes ?Patient agrees, verbalizes understanding, and wants to proceed: yes ?Consent given by: ??Patient ??Informed consent discussion completed by Physician/DESTIN with patient: ?? Verbal Roger HINOJOSA IN CLINIC/BEDSIDE ORDERABLES Final Result * Chlamydia trachomatis and Neisseria gonorrhoeae molecular study (04/02/2025 2:12 PM EDT) Only the most recent of2 resultswithin the time period is included. Neisseria gonorrhoeae PCR Negative Negative LAB MOLECULAR DIAGNOSTICS METHOD 04/03/2025 9:02 AM EDT [facility] Chlamydia trachomatis PCR Negative Negative LAB MOLECULAR DIAGNOSTICS METHOD 04/03/2025 9:02 AM EDT [facility] Swab Vaginal structure / Unknown Non-blood Collection / Unknown 04/02/2025 2:12 PM EDT 04/02/2025 2:12 PM EDT us Christina Phan [facility] MICROBIOLOGY - GENERAL OR DERABLES Final Result [facility] [address] [place] [address], * Cardiac device check - Remote- MURJ (03/15/2025 4:13 PM EDT) Only the most recent of4 resultswithin the time period is included. Date Time Interrogation Session [id number] CV DEVICE CHECK Type Interrogation Session Remote Scheduled CV DEVICE CHECK Implantable Pulse Generator Operations Engineer BSX CV DEVICE CHECK Implantable Pulse Generator Type ILR CV DEVICE CHECK Implantable Pulse Generator Model M312 CV DEVICE CHECK Implantable Pulse Generator Serial Number [id number] CV DEVICE CHECK Implantable Pulse Generator Implant Date [id number] CV DEVICE CHECK Battery Status Beginning of Service CV DEVICE CHECK Atrial Tachy Statistic AT/AF Heth Percent 1.00 CV DEVICE CHECK Date of Service 2025-03-22 CV DEVICE CHECK Anatomical Region Laterality Modality Device Interroga tion 03/11/2025 10:1 7 AM EDT Impressions 03/15/2025 4:02 PM EDT Normal Remote: No Events * This is a normal remote diagnostic device check * Alerts or events: None * Battery data was reviewed * Battery status: MANJIT, OK * Presenting rhythm: SR 80's * Heart Rate Histograms reviewed Narrative Procedure Note Laurence Dixon MD - 03/15/2025 IMPRESSION: Normal Remote: No Events * This is a normal remote diagnostic device check * Alerts or events: None * Battery data was reviewed * Battery status: MANJIT, OK * Presenting rhythm: SR 80's * Heart Rate Histograms reviewed Laurence Dixon MD CV IMPLANTABLE CARDIAC DEV ICE PROCEDURES Final Result * Injection tendon or ligament (03/06/2025 11:00 AM EDT) Narrative Roger Monteiro PA - 03/06/2025 11:00 AM EDT MICAELA Cheung ? 03/29/2025 10:41 AM Injection tendon or ligament Medications: 40 mg triamcinolone acetonide (KENALOG-40) injection 40 mg/mL After obtaining written and verbal consent after discussion of risks and benefits of steroid injections, Kenalog 10 mg/1 mL and xylocaine with epi 1:100,000 injection into both right earlobe keloids. Areas were prepped with alcohol wipe. I injected 0.25 mL of Kenalog and 0.25 mL of 1% xylocaine with epi 1:100,000, spread throughout the earlobe lesion. Patient tolerated anesthesia and injections well with no complications. I applied clean dressing to the area. Patient instructed to keep the area clean for the rest of the day. Roger HINOJOSA IN CLINIC/BEDSIDE ORDERABLES Final Result * Hepatitis C antibody (02/06/2025 1:10 PM EDT) Pathologist [facility] Hepatitis C Antibody Negative Negative LAB CHEMISTRY METHOD 02/06/2025 4:51 PM EDT [facility] Blood Venous blood specimen / Unknown Venipuncture / Unknown 02/06/2025 1:10 PM EDT 02/06/2025 1:31 PM EDT Hema Mirza MD LAB BLOOD ORDERABLES Final Resul t [facility] [address] [place] [address], * HIV 1,2 antibody, p24 antigen with reflex to differentiation (02/06/2025 1:10 PM EDT) Pathologist [facility] HIV Combo AB/AG Negative Negative LAB CHEMISTRY METHOD 02/06/2025 4:52 PM EDT [facility] Blood Venous blood specimen / Unknown Venipuncture / Unknown 02/06/2025 1:10 PM EDT 02/06/2025 1:31 PM EDT Narrative [facility] - 02/06/2025 4:52 PM EDT This assay is a 4th generation assay allowing for earlier detection of HIV infection by detecting the presence of the HIV-1 p24 antigen as well as the traditional antibodies to HIV type 1 (including group O) and type 2. ??Use of a 4th generation assay is the current CDC recommendation for HIV screening. Hema Mirza MD LAB BLOOD ORDERABLES Final Resul t Performing Organization Address [facility] Co de Phone Number [facility] [address] [place] [address], [place] [phone] * Treponema pallidum antibody with reflex to RPR and particle agglutination (02/06/2025 1:10 PM EDT) T. Pallidum Antibodies Negative Negative LAB CHEMISTRY METHOD 02/06/2025 4:23 PM EDT [facility] Blood Venous blood specimen / Unknown Venipuncture / Unknown 02/06/2025 1:10 PM EDT 02/06/2025 1:31 PM EDT Hema Mirza MD LAB BLOOD ORDERABLES Final Resul t Performing Organization Address [facility] de Phone Number [facility] [address] [place] [address], [place] [phone] * Thyroid stimulating hormone with reflex to free t4 and free t3 (02/06/2025 1:10 PM EDT) TSH 0.69 0.40 - 4.00 mcIU/mL LAB CHEMISTRY METHOD 02/06/2025 4:12 PM EDT [facility] Blood Venous blood specimen / Unknown Venipuncture / Unknown 02/06/2025 1:10 PM EDT 02/06/2025 1:31 PM EDT Hema Mirza MD LAB BLOOD ORDERABLES Final Resul t Performing Organization Address [facility] Co de Phone Number [facility] [address] [place] [address], [place] [phone] * (ABNORMAL) Lipid panel with reflex to direct LDL (02/06/2025 1:10 PM EDT) Pathologist [facility] Cholesterol 145 0 - 200 mg/dL LAB CHEMISTRY METHOD 02/06/2025 4:32 PM EDT [facility] Triglycerides 78 0 - 150 mg/dL LAB CHEMISTRY METHOD 02/06/2025 4:32 PM EDT [facility] HDL 31(L) >=40 mg/dL LAB CHEMISTRY METHOD 02/06/2025 4:32 PM EDT [facility] LDL Calculated 98 0 - 100 mg/dL LAB CHEMISTRY METHOD 02/06/2025 4:32 PM EDT [facility] VLDL Cholesterol [place] 15.6 mg/dL LAB CHEMISTRY METHOD 02/06/2025 4:32 PM EDT [facility] Non HDL Chol. (LDL+VLDL) 114 <145 mg/dL LAB CHEMISTRY METHOD 02/06/2025 4:32 PM EDT [facility] Chol/HDL Ratio 4.7(H) 0.0 - 4.4 LAB CHEMISTRY METHOD 02/06/2025 4:32 PM EDT [facility] Blood Venous blood specimen / Unknown Venipuncture / Unknown 02/06/2025 1:10 PM EDT 02/06/2025 1:31 PM EDT us Hema Mirza MD LAB BLOOD ORDERABLES Final Resul t [facility] [address] [place] [address], * (ABNORMAL) CBC auto differential (02/06/2025 1:10 PM EDT) [facility] [address] WBC 7.4 4.8 - 10.8 K/mcL LAB HEMETOLOGY METHOD 02/06/2025 2:07 PM EDT [facility] RBC 4.80 3.80 - 4.80 M/mcL LAB HEMETOLOGY METHOD 02/06/2025 2:07 PM [facility] Hemoglobin 12.2 11.5 - 16.0 g/dL LAB HEMETOLOGY METHOD 02/06/2025 2:07 PM [facility] Hematocrit 39.7 35.0 - 47.0 % LAB HEMETOLOGY METHOD 02/06/2025 2:07 PM [facility] MCV 83.1 79.0 - 98.0 FL LAB HEMETOLOGY METHOD 02/06/2025 2:07 PM [facility] MCH 25.5(L) 27.0 - 32.0 pcg LAB HEMETOLOGY METHOD 02/06/2025 2:07 PM [facility] MCHC 30.7(L) 32.0 - 37.0 g/dL LAB HEMETOLOGY METHOD 02/06/2025 2:07 PM [facility] RDW 14.6 11.0 - 15.0 % LAB HEMETOLOGY METHOD 02/06/2025 2:07 PM [facility] Platelets 238 130 - 400 K/mcL LAB HEMETOLOGY METHOD 02/06/2025 2:07 PM [facility] MPV 11.8(H) 7.0 - 11.0 FL LAB HEMETOLOGY METHOD 02/06/2025 2:07 PM [facility] NRBC 0.0 <1.0 % LAB HEMETOLOGY METHOD 02/06/2025 2:07 PM [facility] NRBC Absolute 0.00 <0.10 K/mcL LAB HEMETOLOGY METHOD 02/06/2025 2:07 PM [facility] Neutrophils Relative 60.0 % LAB HEMETOLOGY METHOD 02/06/2025 2:07 PM [facility] Lymphocytes Relative 30.9 % LAB HEMETOLOGY METHOD 02/06/2025 2:07 PM EDT [facility] Monocytes Relative 7.9 % LAB HEMETOLOGY METHOD 02/06/2025 2:07 PM [facility] Eosinophils Relative 0.7 % LAB HEMETOLOGY METHOD 02/06/2025 2:07 PM [facility] Basophils Relative 0.4 % LAB HEMETOLOGY METHOD 02/06/2025 2:07 PM [facility] Immature Granulocytes Relative 0.1 % LAB HEMETOLOGY METHOD 02/06/2025 2:07 PM [facility] Neutrophils Absolute 4.41 1.50 - 7.00 K/mcL LAB HEMETOLOGY METHOD 02/06/2025 2:07 PM [facility] Lymphocytes Absolute 2.27 1.00 - 5.00 K/mcL LAB HEMETOLOGY METHOD 02/06/2025 2:07 PM [facility] Monocytes Absolute 0.58 0.20 - 1.00 K/mcL LAB HEMETOLOGY METHOD 02/06/2025 2:07 PM [facility] Eosinophils Absolute 0.05 0.00 - 0.50 K/mcL LAB HEMETOLOGY METHOD 02/06/2025 2:07 PM [facility] Basophils Absolute 0.03 0.00 - 0.20 K/mcL LAB HEMETOLOGY METHOD 02/06/2025 2:07 PM [facility] Immature Granulocytes Absolute 0.01 0.00 - 0.03 K/mcL LAB HEMETOLOGY METHOD 02/06/2025 2:07 PM [facility] Blood Venous blood specimen / Unknown Venipuncture / Unknown 02/06/2025 1:10 PM EDT 02/06/2025 1:31 PM EDT us Hema Mirza MD LAB BLOOD ORDERABLES Final Resul t Performing Organization Address [facility] Co de Phone Number [facility] [address] [place] [address], [place] [phone] * (ABNORMAL) Vitamin D 25 hydroxy (02/06/2025 1:10 PM EDT) Pathologist [facility] Vit D, 25-Hydroxy 25.1(L) 30.0 - 80.0 ng/mL LAB CHEMISTRY METHOD 02/06/2025 4:12 PM EDT [facility] Blood Venous blood specimen / Unknown Venipuncture / Unknown 02/06/2025 1:10 PM EDT 02/06/2025 1:31 PM EDT us Hema Mirza MD LAB BLOOD ORDERABLES Final Resul t Performing Organization Address [facility] de Phone Number [facility] [address] [place] [address], [place] [phone] * Hemoglobin A1c (02/06/2025 1:10 PM EDT) [facility] [address] Hemoglobin A1C 5.9 <6.5 % LAB CHEMISTRY METHOD 02/07/2025 11:50 AM EDT [facility] Mean Bld Glu Estim. 123 mg/dL LAB CHEMISTRY METHOD 02/07/2025 11:50 AM EDT [facility] Blood Venous blood specimen / Unknown Venipuncture / Unknown 02/06/2025 1:10 PM EDT 02/06/2025 1:31 PM EDT us Hema Mirza MD LAB BLOOD ORDERABLES Final Resul t Performing Organization Address [facility] Co de Phone Number [facility] [address] [place] [address], [place] [phone] * Vitamin B12 (02/06/2025 1:10 PM EDT) [facility] [address] Vitamin B-12 610 250 - 900 pcg/mL LAB CHEMISTRY METHOD 02/06/2025 4:32 PM T [facility] Blood Venous blood specimen / Unknown Venipuncture / Unknown 02/06/2025 1:10 PM EDT 02/06/2025 1:31 PM EDT us Hema Mirza MD LAB BLOOD ORDERABLES Final Resul t [facility] [address] [place] [address], [place] [phone] * Comprehensive metabolic panel (02/06/2025 1:10 PM EDT) Sodium 138 133 - 145 mmol/L LAB CHEMISTRY METHOD 02/06/2025 4:32 PM [facility] Potassium 3.7 3.5 - 5.5 mmol/L LAB CHEMISTRY METHOD 02/06/2025 4:32 PM [facility] Chloride 107 96 - 110 mmol/L LAB CHEMISTRY METHOD 02/06/2025 4:32 PM [facility] CO2 26 21 - 32 mmol/L LAB CHEMISTRY METHOD 02/06/2025 4:32 PM [facility] Anion Gap 5 3 - 11 LAB CHEMISTRY METHOD 02/06/2025 4:32 PM [facility] Glucose 81 70 - 100 mg/dL LAB CHEMISTRY METHOD 02/06/2025 4:32 PM [facility] BUN 11 5 - 25 mg/dL LAB CHEMISTRY METHOD 02/06/2025 4:32 PM [facility] Creatinine 0.82 0.50 - 1.10 mg/dL LAB CHEMISTRY METHOD 02/06/2025 4:32 PM [facility] eGFR 96 >=60 mL/min/1. 73m2 LAB CHEMISTRY METHOD 02/06/2025 4:32 PM [facility] Comment:Calculation based on the??Chronic Kidney Disease Epidemiology Collaboration (CKD-EPI) equation refit??without adjustment for race. BUN/Creatinine Ratio 13.4 LAB CHEMISTRY METHOD 02/06/2025 4:32 PM EDT [facility] Calcium 8.9 8.5 - 10.5 mg/dL LAB CHEMISTRY METHOD 02/06/2025 4:32 PM [facility] AST (SGOT) 10 10 - 42 unit/L LAB CHEMISTRY METHOD 02/06/2025 4:32 PM EDT [facility] ALT (SGPT) 17 10 - 60 unit/L LAB CHEMISTRY METHOD 02/06/2025 4:32 PM EDT [facility] Alkaline Phosphatase 84 42 - 121 unit/L LAB CHEMISTRY METHOD [facility]/06[facility]25 [facility] Total Protein 6.6 6.0 - 8.0 g/dL LAB CHEMISTRY METHOD 02/06/2025 4:32 PM EDT [facility] Albumin 3.5 3.2 - 5.0 g/dL LAB CHEMISTRY METHOD 02/06/2025 4:[facility] Total Bilirubin 0.5 0.0 - 1.4 mg/dL LAB CHEMISTRY METHOD 02/06/2025 4:32 PM EDT [facility] Blood Venous blood specimen / Unknown Venipuncture / Unknown 02/06/2025 1:10 PM EDT 02/06/2025 1:31 PM EDT us Hema Mirza MD LAB BLOOD ORDERABLES Final Resul t [facility] [address] [place] [address], [place] [phone] * Depression Screening (12/08/2023) Depression Screening abstracted Historical Provider HEALTH MAINTENANCE Final Result * Cervical Cancer Screening: HPV (03/09/2022) Cervical Cancer Screening: HPV negative, abstracted us Historical Provider HEALTH MAINTENANCE Final Result from Last 3 Months or Most Recently Relevant to Health Maintenance Insurance [employer] Member Subscriber Plan / Payer (Ef fective 2018-Present) Name:DONALD HANCOCK Relation to Subscriber:Self Name:Donald Hancock I Payer ID:[id number] Group ID:[id number] Type:Not on file Address: [place] [address] [address] [phone] Care Teams Leadership Development Manager Relationship Specialty Start Date End Date Hema Mirza MD [address] [place] [id number] PCP - General 11/10/23
== END 2025-04-24 11:01 | disposition home or self-care (01) ==
LOC: HO.HSMS 09:51
PROVIDERS: PCP Student in an Organized Health Care Education/Training Program; Visit Provider Nurse Practitioner Family
DX: G80.8 Other cerebral palsy (principal); R29.6 Repeated falls; R06.83 Snoring; G47.19 Other hypersomnia; R25.2 Cramp and spasm; G43.009 Migraine without aura, not intractable, without status migrainosus; R56.9 Unspecified convulsions
CPT/HCPCS: 99214

== ENCOUNTER 2025-04-24 11:24 | Outpatient (REF) | payer OTHER, SELFPAY ==
[2025-04-24 17:57] LABS: MANUAL DIFF FLAG NO
[2025-04-24 18:13] LABS: Basophils Percent Auto 0.4 % (0-2); Eosinophils Absolute Auto 0.1 X10*3/uL (0.0-0.4); Eosinophils Percent Auto 0.9 % (0-4); Hemoglobin 11.7 g/dl (12.0-16.0); Imm Gran Abs Auto 0.04 X10*3/uL (0.00-0.03); Imm Gran Pct Auto 0.5 % (0.0-0.4); Lymphocytes Absolute Auto 1.7 X10*3/uL (1.2-4.9); Mean Corpuscular HGB Conc 30.8 g/dl (31.0-35.0); Mean Corpuscular Hemoglobin 25.5 pg (27.0-33.0); Monocytes Absolute Auto 0.6 X10*3/uL (0.1-1.2); Monocytes Percent Auto 7.5 % (2-11); Neutrophils Absolute Auto 5.7 x10*3/uL (2.0-8.3); Neutrophils Percent Auto 69.7 % (45-73); Platelet Count 245 X10*3/uL (160-400); Red Blood Count 4.58 X10*6/uL (4.20-5.50); White Blood Count 8.2 X10*3/uL (4.8-10.8)
[2025-04-24 18:24] LABS: Estimated Average Glucose 103 mg/dL; Hemoglobin A1c % 5.2 % (<6.0); Total Hemoglobin (HGBA1C) 3154.2567 umol/L
[2025-04-24 18:31] LABS: Alanine Aminotransferase 7 U/L (0-31); Albumin Level 3.7 g/dL (3.5-5.0); Alkaline Phosphatase 77 U/L (39-117); Anion Gap 10 (12-20); Aspartate Amino Transferase 23 U/L (5-31); Bilirubin Total 0.5 mg/dL (0.0-1.0); Blood Urea Nitrogen 11 mg/dL (9-16); Calcium 8.4 mg/dL (8.4-10.2); Carbon Dioxide 26 mmol/L (22-29); Chloride 108 mmol/L (96-108); Cholesterol 141 mg/dL (<200); Estimated Glomerular Filt Rate > 60; Glucose Random 73 mg/dL (60-115); HDL Cholesterol 27 mg/dL (>40); Iron 34 mcg/dL (30-160); LDL Cholesterol Calculated 99 mg/dL (<100); Percent Iron Saturation 15 % (15-50); Potassium 3.7 mmol/L (3.3-5.1); Sodium 140 mmol/L (135-145); Total Iron Binding Capacity 224 mcg/dL (228-428); Total Protein 6.6 g/dL (6.5-8.0); Triglycerides 76 mg/dL (<150); Unsaturated Iron Binding 190 ug/dL
[2025-04-24 18:48] LABS: Ferritin 78 ng/mL (10-122); TSH reflex Free T4 0.78 uIU/mL (0.32-4.0)
[2025-04-24 19:00] LABS: Folate 2.3 ng/mL (> or = 4.0); Vitamin B12 373 pg/mL (200-900)
[2025-04-24 19:03] LABS: Reflex LDLD? No
[2025-04-24 19:09] LABS: Erythrocyte Sedimentation Rate 13 MM/HR (0-20)
[2025-04-26 19:29] LABS: Methylmalonic Acid 80 nmol/L (55-335)
[2025-04-30 15:14] LABS: Vitamin B6 3.4 ng/mL (2.1-21.7)
[2025-05-01 06:24] LABS: Vitamin D 25-OH, D2 <4 ng/mL; Vitamin D 25-OH, D3 20 ng/mL; Vitamin D 25-OH, Total 20 ng/mL (30-100)
== END 2025-04-24 11:25 | disposition home or self-care (01) ==
LOC: HO.HKASLDS 11:24
PROVIDERS: Visit Provider Nurse Practitioner Family
DX: R25.2 Cramp and spasm (principal); D64.9 Anemia, unspecified; F32.A Depression, unspecified; R56.9 Unspecified convulsions; G47.19 Other hypersomnia; G80.8 Other cerebral palsy; R29.6 Repeated falls; R06.83 Snoring; G43.009 Migraine without aura, not intractable, without status migrainosus; Z79.899 Other long term (current) drug therapy
CPT/HCPCS: 36415; 80053; 80061; 82306; 82607; 82728; 82746; 83036; 83540; 83921; 84207; 84443; 85025; 85652; 86140; 99212

== ENCOUNTER → 2025-05-27 19:30 | Outpatient (BNV) | payer OTHER, SELFPAY | PROVIDERS: PCP Student in an Organized Health Care Education/Training Program; Visit Provider Psychiatry & Neurology Neurology | DX: R06.83 Snoring (principal) | CPT/HCPCS: 95810 ==

== ENCOUNTER → 2025-05-27 19:30 | Outpatient (REF) | payer OTHER, SELFPAY | LOC: HO.SL 19:30 | PROVIDERS: PCP Student in an Organized Health Care Education/Training Program; Visit Provider Nurse Practitioner Family | DX: R06.83 Snoring (principal); G47.19 Other hypersomnia; R25.2 Cramp and spasm | CPT/HCPCS: 95810 ==

== ENCOUNTER 2025-08-27 08:00 | Outpatient (RCR) | payer OTHER, SELFPAY ==
[2025-08-07 13:14] VITALS: BMI 33.6
[2025-08-07 13:30] VITALS: BP 92/70; PULSE 96; TEMP 37
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
--- NOTE | 2025-08-08 15:03 | HO.PHP ---
Client case was reviewed and opened in teams.
--- NOTE | 2025-08-08 20:28 | HO.PS.ADMBH ---
HPI Date of Service: 08/08/25 Chief Complaint: anxiety,trauma Sources of Information: patient interviewed, chart reviewed and crisis/core team assessment reviewed HPI Narrative: Patient is a 35 yo female with a history of epilepsy, cerebral palsy with left sided weakness, DVT with filter placement, tachycardia with ILR, who was recently presented to the ED with worsening depression, anxiety, PTSD and after being a bed search for 3 days, then discharged with referral to PHP. It's been like this since I was 14. I was bullied. I'm always with anxiety, and days of being emotional and crying. I've been feeling more depressed lately . Sleep has been disrupted, energy low. Endorses AH as negative voices in her head and negative self talk, not feeling like I'm enough . Denies any suicidal ideation or thoughts of harming self or others. Experiencing more headaches with stress level. Denies any alcohol or drug use. Currently living with her parents for now along with her children, 16 yo daughter and 2 yo son. Past Psychiatric History: No prior IPLOC, PHP, respite, detox/rehab admissions SA: denies SIB: denies Aggression or antisocial behaviors: denies Denies legal history Pertinent developmental hx: Previous diagnoses: Psychiatrist: Charles Weber [facility] Therapist: Isidoro Contreras PCP: Hema Mirza MD [facility] Medical History (Updated 08/14/25 @ 12:12 by Margarita Fagan MD) Anemia May-Thurner syndrome Deep vein thrombosis (DVT) of left lower extremity Implantable loop recorder present Left-sided hemiplegic cerebral palsy HTN (hypertension) Depression GERD (gastroesophageal reflux disease) Seizures Surgical History (Updated 08/07/25 @ 13:13 by Whitney Devries RN) H/O tubal ligation History of surgery on lower extremity History of embolectomy Hx of hand surgery History of surgery on lower extremity History of section Diagnostics Vital Signs (24Hr): BMI result Body Mass Index 33.6 Meds/Allergies Meds Home Medications ?Medication ?Instructions ?Recorded ?Confirmed ?Type flecainide 100 mg tablet 100 mg PO BID 12/16/23 08/07/25 History levonorgestrel (Mirena) intrauterine 05/01/24 04/24/25 History acetaminophen 500 mg tablet 500 mg PO Q6H PRN mild pain 08/07/25 08/07/25 History apixaban 5 mg tablet (Eliquis) 5 mg PO BID 08/07/25 08/07/25 History brexpiprazole 2 mg tablet (Rexulti) 2 mg PO BEDTIME 08/07/25 08/07/25 History cholecalciferol (vitamin D3) 1,250 1,250 mcg PO QWEEK 08/07/25 08/07/25 History mcg (50,000 unit) capsule clonazepam 0.5 mg tablet 0.5 mg PO TID PRN Anxiety 08/07/25 08/07/25 History escitalopram oxalate 20 mg tablet 20 mg PO DAILY 08/07/25 08/07/25 History famotidine 20 mg tablet 20 mg PO BID 08/07/25 08/07/25 History lamotrigine 200 mg tablet 200 mg PO DAILY 08/07/25 08/07/25 History metoprolol succinate 50 mg 50 mg PO DAILY 08/07/25 08/07/25 History tablet,extended release 24 hr sumatriptan succinate 100 mg tablet See Rx Instructions .Route .COMPLEX 08/07/25 08/07/25 History tirzepatide (weight loss) 15 15 mg subcut QWEEK 08/07/25 08/07/25 History mg/0.5 mL subcutaneous pen injector (Zepbound) zolpidem 5 mg tablet 5 mg PO BEDTIME PRN Insomnia 08/07/25 08/07/25 History Allergies Allergies Allergy/AdvReac Type Severity Reaction Status Date / Time ciprofloxacin Allergy Unknown Rash Verified 04/24/25 10:10 acetaminophen (From Percocet) Allergy Rash Verified 08/07/25 13:14 morphine Allergy Hives Verified 08/07/25 13:14 oxycodone (From Percocet) Allergy Rash Verified 08/07/25 13:14 Mental Status Exam Mental Status Exam Narrative: Alert, oriented, in no acute distress. Calm, cooperative, engaged. No psychomotor agitation or neurovegetative retardation. Eye contact maintained. Mood depressed, anxious, affect constricted without tearfulness or lability. Speech normal. Thought process linear, coherent. Thought content related to stressors, denies any hopelessness or SI. Denies any aggressive ideation or HI. No paranoia or delusional content elicited. No evidence of psychosis. Insight and judgment - fair but adequate. Assessment & Plan Assessment & Plan (1) PTSD (post-traumatic stress disorder): Status: Acute Code(s): F43.10 - Post-traumatic stress disorder, unspecified (2) SUNNY (generalized anxiety disorder): Status: Acute Code(s): F41.1 - Generalized anxiety disorder (3) MDD (major depressive disorder), recurrent episode: Status: Acute Code(s): F33.9 - Major depressive disorder, recurrent, unspecified Plan Admit to [facility] VS reviewed: afebrile, BP 92/70;?96 bpm start risperidone 0.5 mg BID prn agitation/anxiety/AH if tolerated, may consider cross tapering off Rexulti and onto risperidone continue other regular medications for now Routine lab work as indicated EKG, routine for baseline QTc for medication considerations as indicated UDS as indicated MassPat reviewed Continue to monitor as per protocol Patient educated on: diagnosis and medication risk/benefits Reason for continued partial hosp. stay Substantial Risk for: inability to function, rapid decompensation and med/psych decompensation Certification I certify that partial hospital treatment is medically necessary due to the symptoms and problems resulting from the patient's mental illness and the failure to treat the patient at the partial hospital level of care would likely result in the patient requiring inpatient psychiatric care which could not be prevented at a less intensive level of care. Time Spent With Patient Time: Total time managing care of this patient today _60___ minutes.
--- NOTE | 2025-08-19 08:49 | HO.PHP ---
PHP admin, Yaritza, informed the team that Charity will not be in attendance to program today due to feeling unwell. No safety concerns were presented at the time of the call.
--- NOTE | 2025-08-21 19:59 | P.PNPSP_ITS ---
Subjective Subjective Date of Service: 08/20/25 Reason For Visit: anxiety,trauma Interim History: Patient seen for follow-up. Was started on Risperdal has been taking regularly in AM and has been definitely helpful alhthough is felt to wear off. She sometimes takes a 2nd dose (although tries not to unless it gets really bad . She is advocating for more time at program. She stopped the Rexulti last week without taper. Denies any issues. Still feel stress and anxiety...still have some days but less than before . Concerned about taking daily, which was discussed and pt recognized she has better periods of the day when she takes the medication. Endorses a little ongoing AH. Denies SI or HI. Medication Compliance: Yes Side effects from medications: No Attending Groups: Yes Review of Systems Acute medical concerns: No Mental Status Exam Mental Status Exam Narrative: Alert, oriented, in no acute distress. Calm, cooperative, engaged. No psychomotor agitation or neurovegetative retardation. Eye contact maintained. Mood depressed, anxious, affect constricted without tearfulness or lability. Speech normal. Thought process linear, coherent. Thought content related to stressors, denies any hopelessness or SI. Denies any aggressive ideation or HI. No paranoia or delusional content elicited. No evidence of psychosis. Insight and judgment - fair but adequate. Diagnostics Vital Signs (24Hr): BMI result Body Mass Index 33.6 Assessment & Plan Assessment & Plan (1) PTSD (post-traumatic stress disorder): Status: Acute Code(s): F43.10 - Post-traumatic stress disorder, unspecified (2) SUNNY (generalized anxiety disorder): Status: Acute Code(s): F41.1 - Generalized anxiety disorder (3) MDD (major depressive disorder), recurrent episode: Status: Acute Code(s): F33.9 - Major depressive disorder, recurrent, unspecified Plan Extend PHP continue risperidone 0.5 mg BID prn agitation/anxiety/AH (patient encouraged to take regularly for now) continue clonazepam 0.5 mg TID prn anxiety continue Lamictal 200 mg qd continue Lexapro 20 mg qd continue Keppra 1000 mg BID off Rexulti (patient discontinued last week) continue other regular medications - famotidine 20 mg BID, flecainide 100 mg, Eliquis 5 mg BID, MgO2 400 mg, metoprolol 50 mg, sumatriptan, Zepbound Routine lab work as indicated EKG, routine for baseline QTc for medication considerations as indicated UDS as indicated VS reviewed: afebrile, BP 92/70;?96 bpm Continue to monitor Patient educated on: diagnosis and medication risk/benefits Informed Consent: understands Reason for contiued partial hosp. stay Substantial Risk for: med/psych decompensation Certification I certify that partial hospital treatment is medically necessary due to the symptoms and problems resulting from the patient's mental illness and the failure to treat the patient at the partial hospital level of care would likely result in the patient requiring inpatient psychiatric care which could not be prevented at a less intensive level of care. Total time managing care of this patient today _30___ minutes. Discharge Plan Discharge Attending provider: Margarita Fagan Medications: Continued folic acid 800 mcg tablet 0.8 mg PO DAILY 30 Days Qty: 30 4RF metoprolol succinate 50 mg tablet extended release 24 hr 50 mg PO DAILY Rx Instructions: TAKE 1 TABLET BY MOUTH 1 TIME EACH DAY. DO NOT CRUSH OR CHEW. sumatriptan succinate 100 mg tablet See Rx Instructions .ROUTE .COMPLEX Rx Instructions: Take one tab at onset of migraine h/a. may repeat as needed. Not to exceed 2 tabs daily and 4 tabs a week. clonazepam 0.5 mg tablet 0.5 mg PO TID PRN (Reason: Anxiety) famotidine 20 mg tablet 20 mg PO BID zolpidem 5 mg tablet 5 mg PO BEDTIME PRN (Reason: Insomnia) cholecalciferol (vitamin D3) 1,250 mcg (50,000 unit) capsule 1,250 mcg PO QWEEK Rx Instructions: TAKE 1 CAPSULE ONCE A WEEK FOR 12 WEEKS Eliquis 5 mg tablet 5 mg PO BID Zepbound 15 mg/0.5 mL pen injector 15 mg SUBCUT QWEEK lamotrigine 200 mg tablet 200 mg PO DAILY Qty: 30 0RF escitalopram oxalate 20 mg tablet 20 mg PO DAILY Qty: 30 0RF flecainide 100 mg tablet 100 mg PO BID Mirena 21 mcg/24 hours (8 yrs) 52 mg intrauterine device intrauterine magnesium oxide 400 mg (241.3 mg magnesium) tablet 400 mg PO BEDTIME 90 Days Qty: 90 3RF Rx Instructions: may hold for loose stools levetiracetam 500 mg tablet 1,000 mg PO BID 90 Days Qty: 360 3RF Changed risperidone 0.5 mg tablet 0.5 mg PO BID Qty: 60 0RF No Action acetaminophen 500 mg tablet 500 mg PO Q6H PRN (Reason: mild pain) Rexulti 2 mg tablet 2 mg PO BEDTIME Stand Alone Forms: Patient Portal Discharge page Print Language: Latvian
--- NOTE | 2025-08-27 19:31 | P.PNPSP_ITS ---
Subjective Subjective Date of Service: 08/27/25 Reason For Visit: anxiety,trauma Interim History: Patient seen for follow-up, anticipating discharge. Been taking risperidone more regularly BID, feels it is more helpful especially in the AM, effects start to fade and by later in afternoon anxiety is returning. She is encouraged to take BID-TID with taking dose regularly in AM anddaily at 2-3 pm. She could take 1/2-1 tablet on an as needed basis at night/bedtime. Patient feels this would be a good plan. She sees her med provider William Weber on 09/03. Reports no acute issues or concerns. Medication compliant, medications well- tolerated. Denies any adverse effects.? Mood is stable.? Denies any hopelessness or SI. Denies thoughts of harming self or others at this time. Denies any aggressive ideation or HI. Denies any paranoia or AH or VH. Sleep, appetite, energy stable. Medication Compliance: Yes Side effects from medications: No Attending Groups: Yes Review of Systems Acute medical concerns: No Mental Status Exam Mental Status Exam Narrative: Alert, oriented, in no acute distress. Calm, cooperative. Mood stable, affect appropriate. Speech normal. Thought process linear, coherent, more goal- directed. Thought content related to stressors, future-oriented, denies any helplessness, hopelessness or SI.? No aggressive ideation or HI. No paranoia or delusional content elicited. No evidence of psychosis. Insight and judgment fair-good. Diagnostics Vital Signs (24Hr): BMI result Body Mass Index 33.6 Assessment & Plan Assessment & Plan (1) PTSD (post-traumatic stress disorder): Status: Acute Code(s): F43.10 - Post-traumatic stress disorder, unspecified (2) SUNNY (generalized anxiety disorder): Status: Acute Code(s): F41.1 - Generalized anxiety disorder (3) MDD (major depressive disorder), recurrent episode: Status: Acute Code(s): F33.9 - Major depressive disorder, recurrent, unspecified Plan [facility]charge from [facility] continue risperidone 0.5 mg BID prn agitation/anxiety/AH (patient encouraged to take regularly for now) continue clonazepam 0.5 mg TID prn anxiety continue Lamictal 200 mg qd continue Lexapro 20 mg qd continue Keppra 1000 mg BID off Rexulti (patient discontinued last week) continue other regular medications - famotidine 20 mg BID, flecainide 100 mg, El iquis 5 mg BID, MgO2 400 mg, metoprolol 50 mg, sumatriptan, Zepbound Refills sent to pharmacy Will defer further medication management to outpatient provider *Safety plan reviewed *Discharge diagnoses, treatment course, discharge plan have been reviewed with patient (including medication regime, medication management, potential side effects) as well as treatment rationale were also revisited *Discharge paperwork signed and given to patient, copy sent for scanning to chart Patient educated on: diagnosis and medication risk/benefits Informed Consent: understands Reason for contiued partial hosp. stay Substantial Risk for: stable for discharge Certification I certify that partial hospital treatment is medically necessary due to the symptoms and problems resulting from the patient's mental illness and the failure to treat the patient at the partial hospital level of care would likely result in the patient requiring inpatient psychiatric care which could not be prevented at a less intensive level of care. Total time managing care of this patient today __30__ minutes. Discharge Plan Discharge Attending provider: Margarita Fagan Medications: New risperidone 0.25 mg tablet 0.25 mg PO BID Qty: 60 0RF Continued folic acid 800 mcg tablet 0.8 mg PO DAILY 30 Days Qty: 30 4RF metoprolol succinate 50 mg tablet extended release 24 hr 50 mg PO DAILY Rx Instructions: TAKE 1 TABLET BY MOUTH 1 TIME EACH DAY. DO NOT CRUSH OR CHEW. sumatriptan succinate 100 mg tablet See Rx Instructions .ROUTE .COMPLEX Rx Instructions: Take one tab at onset of migraine h/a. may repeat as needed. Not to exceed 2 tabs daily and 4 tabs a week. clonazepam 0.5 mg tablet 0.5 mg PO TID PRN (Reason: Anxiety) famotidine 20 mg tablet 20 mg PO BID zolpidem 5 mg tablet 5 mg PO BEDTIME PRN (Reason: Insomnia) cholecalciferol (vitamin D3) 1,250 mcg (50,000 unit) capsule 1,250 mcg PO QWEEK Rx Instructions: TAKE 1 CAPSULE ONCE A WEEK FOR 12 WEEKS Eliquis 5 mg tablet 5 mg PO BID Zepbound 15 mg/0.5 mL pen injector 15 mg SUBCUT QWEEK lamotrigine 200 mg tablet 200 mg PO DAILY Qty: 30 0RF escitalopram oxalate 20 mg tablet 20 mg PO DAILY Qty: 30 0RF flecainide 100 mg tablet 100 mg PO BID Mirena 21 mcg/24 hours (8 yrs) 52 mg intrauterine device intrauterine magnesium oxide 400 mg (241.3 mg magnesium) tablet 400 mg PO BEDTIME 90 Days Qty: 90 3RF Rx Instructions: may hold for loose stools levetiracetam 500 mg tablet 1,000 mg PO BID 90 Days Qty: 360 3RF Changed risperidone 0.5 mg tablet 0.5 mg PO BID Qty: 60 0RF Discontinued Rexulti 2 mg tablet 2 mg PO BEDTIME No Action acetaminophen 500 mg tablet 500 mg PO Q6H PRN (Reason: mild pain) Stand Alone Forms: Patient Portal Discharge page Patient Education: Depression (ED), Depression (DC), Anxiety (ED) Print Language: Australian
== END 2025-08-27 23:59 | disposition home or self-care (01) ==
LOC: HO.PHPA 08:00
PROVIDERS: Visit Provider Psychiatry & Neurology Psychiatry
DX: F43.10 Post-traumatic stress disorder, unspecified (principal); F41.1 Generalized anxiety disorder; F33.9 Major depressive disorder, recurrent, unspecified; Z79.899 Other long term (current) drug therapy
CPT/HCPCS: 90791; 90853

== ENCOUNTER 2025-10-31 10:31 | Outpatient (AMB) | payer OTHER, SELFPAY ==
[2025-10-31 10:34] VITALS: BP 104/80; PULSE 92; O2SAT 98; BMI 33.6
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
== END 2025-10-31 11:35 | disposition home or self-care (01) ==
LOC: HO.HSMS 10:32
PROVIDERS: PCP Student in an Organized Health Care Education/Training Program; Visit Provider Nurse Practitioner Family
DX: G80.8 Other cerebral palsy (principal); R06.83 Snoring; R25.2 Cramp and spasm; G43.009 Migraine without aura, not intractable, without status migrainosus; R56.9 Unspecified convulsions
CPT/HCPCS: 99214

== ENCOUNTER → 2025-10-31 10:31 | Outpatient (BNVA) | payer OTHER, SELFPAY | PROVIDERS: PCP Student in an Organized Health Care Education/Training Program; Visit Provider Nurse Practitioner Family | DX: G80.8 Other cerebral palsy (principal); G43.009 Migraine without aura, not intractable, without status migrainosus; R06.83 Snoring; R25.2 Cramp and spasm; R56.9 Unspecified convulsions; R29.6 Repeated falls; G47.19 Other hypersomnia; D64.9 Anemia, unspecified; F32.A Depression, unspecified; I82.409 Acute embolism and thrombosis of unspecified deep veins of unspecified lower extremity | CPT/HCPCS: 99212 ==